=== PATIENT | female | born 1985 | race Asian ===

== ENCOUNTER 2019-08-08 23:45 | Inpatient (IN) | payer OTHER ==
[2019-08-09] MEDS ORDERED: Buffered Lidocaine 1% SYRIN* 1 ML/SYRINGE INTRADERM ONE (00:27)
[2019-08-09] MEDS ORDERED: Lactated Ringers 1000 ML Bag* 1,000 ML IV ONE ×2 (00:27→05:23)
--- NOTE | 2019-08-09 00:38 | HP ---
General Information - Reason for Visit labor/ rupture of membranes - General Information Maternal Age: 33 Grav: 22 Para: 0 SAB: 0 IEA: 1 Estimated Due Date: 08/18/19 Determined By: LMP Maternal Blood Type and Rh: O Positive - Results this Serology/RPR Result: Non-Reactive Rubella Result: Non-Immune HBsAg Result: Negative HIV Result: Negative GBS Culture Result: Negative Past Medical History Delivery History: See Records Pertinent Past Medical History: See Records Pertinent Past Surgical History: See Records Pertinent Family History: See Records - Antepartal Records Antepartal Records: Reviewed, Uncomplicated Review of Systems Constitutional: Comfortable CV Complaint: No Respiratory: Shortness of Breath: No Gastrointestinal: No Nausea/Vomiting Genitourinary: Leaking Fluid Musculoskeletal: No Complaint Neurological: No Headache Movement: Normal Exam T: 98.0 BP: 119/70 P : 101 - Measurements Height: 5 ft 2.2 in Weight: 156 lb Weight in lbs: 156.414169 Body Mass Index (BMI): 28.3 Pre- Weight: 123 lb 7.342 oz Weight Gained This : 32.541 lbs and 0.002 ozs - Exam Breast: Breast Exam Deferred CVA: No CVA Tenderness Extremities: No Edema Heart: Normal Rhythm/Heart Sounds HEENT: No Significant Findings Lungs: Clear Bilaterally Rectal: Rectal Exam Deferred Reflexes: DTR 2+ Thyroid: No Thyromegaly - Abdominal Exam Abdomen Exam: Non-Tender - Ultrasound/Biophysical Profile Ultrasound Status: Not Done Targeted Exam Findings Cervical Exam: 3cm Effacement: 80% Station: 0 Presenting Part: Vertex Membrane Status: Leaking Amniotic Fluid Evaluation: Gross Rupture EFM Findings - External Monitor Findings Baseline Heart Rate: 140 External Monitor Findings: Accelerations Present, No Pattern of Variable or Late Decelerations, Variability Moderate, Baseline Stable Contractions: Regular - Q - 6-7 ' Assessment/Plan - Assessment Pt 33 yo G1 at 38 2/7 weeks with rupture of membranes at 11:20 PM on 08/08/2019 - Plan Plan: Admit - Anticipate Vaginal Delivery
[2019-08-09] MEDS ORDERED: Lactated Ringers 1000 ML Bag* 1,000 ML IV SCH ×3 (01:00→09:00)
[2019-08-09 01:22] LABS: ABS Lymphocytes 1.4 10^3/ul (1.0-4.8); ABS Monocytes 0.6 10^3/ul (0-0.8); ABS Neutrophils 5.1 10^3/ul (1.5-7.7); Eosinophil % 0.7 %; Hematocrit 37 % (35-47); Hemoglobin 12.9 g/dL (12.0-16.0); Lymphocyte % 19.2 %; Mean Corpuscular HGB Conc 35 g/dL (31-36); Mean Corpuscular Hemoglobin 31 pg (27-31); Mean Corpuscular Volume 90 fL (80-97); Mean Platelet Volume 8.4 fL (7.4-10.4); Platelet Count 225 10^3/uL (150-450); Red Blood Count 4.16 10^6 /uL (3.70-4.87); Red Cell Distribution Width 13 % (10-15); White Blood Count 7.1 10^3/uL (3.5-10.8)
[2019-08-09 01:44] LABS: Urine Benzodiazepine Screen None Detected (None Detect); Urine Opiates Screen None Detected (None Detect)
[2019-08-09] MEDS ORDERED: OBEPIDURAL* 250 ML EPIDURAL ONE (04:13)
[2019-08-09] MEDS ORDERED: Famotidine TAB* 20 MG PO PRN (05:23)
[2019-08-09] MEDS ORDERED: Sodium Citrate/Citric Acid* 15 ML UDC PO PRN (05:23)
[2019-08-09] MEDS ORDERED: Phenylephrine 40 MCG/ML SYRINGE IV PUSH PRN ×2 (05:23)
[2019-08-09] MEDS ORDERED: EPHEDrine (Pressors)* 50 MG/ML VIAL IV PUSH PRN ×2 (05:23)
[2019-08-09] MEDS ORDERED: OBEPIDURAL* 250 ML EPIDURAL SCH (06:00)
[2019-08-09] MEDS ORDERED: Oxytocin in LR* 20 UNITS/1,000 ML BAG IVPB ONE (08:02)
[2019-08-09] MEDS ORDERED: Acetaminophen TAB* 325 MG PO PRN (08:13)
[2019-08-09] MEDS ORDERED: Measles, Mumps,Rubella VACC* 0.5 ML/VIAL SUBCUT ONE (08:13)
[2019-08-09] MEDS ORDERED: Glycerin ADULT SUPP PR PRN (08:13)
[2019-08-09] MEDS ORDERED: Oxytocin in LR* 20 UNITS/1,000 ML BAG IVPB SCH (09:00)
[2019-08-09] MEDS ORDERED: Lidocaine 1% INJ* 10 MG/ML 30 ML SDV ONE (11:37)
[2019-08-09] MEDS: Ibuprofen TAB* 600 MG PO SCH ×2 (12:31→18:44)
[2019-08-09] MEDS: Docusate CAP* 100 MG PO SCH ×3 (12:34→21:27)
[2019-08-09] MEDS: Witch Hazel PAD* JAR TOPICAL PRN (12:43)
[2019-08-09] MEDS: Simethicone TAB* 80 MG TAB.CHEW PO SCH ×2 (15:01→15:04)
--- NOTE | 2019-08-09 15:03 | PROCNOTE ---
[facility] OB: Delivery Note - Delivery A Date of : 08/09/19 Time of : 07:58 Sex: Male Weight at : 7 lb 5 oz Score 1 Minute: 9 Score 5 Minutes: 9 Gestational Age in Weeks and Days at Delivery: 38 Weeks and 5 Days Delivery Method: Spontaneous Vaginal Labor: Spontaneous Did Patient attempt ?: N/A, No Previous Amniotic Fluid: Clear Estimated Blood Loss: 200 Anesthesia/Analgesia: CEI for Labor Delivered By: Jean-Pierre Grant - Nursery Level of Nursery: Regular/Bedside - Perineum Perineal Injury: 2nd Degree - repair with 3-0 vicryl - Events Delivery Events of Note: Pitocin Only After Delivery - Risk for Falls Other Risk for Falls: none
--- NOTE | 2019-08-09 18:56 | PTEDU ---
Patient Name: SOMMER DUDLEY SOMMER DUDLEY selected video: BBOB: Bonding Through Massage to view on 08/09/2019 at 6:55:19 PM from [id number]
[2019-08-10 08:14] LABS: ABS Eosinophils 0.1 10^3/ul (0-0.6); ABS Lymphocytes 2.2 10^3/ul (1.0-4.8); ABS Monocytes 0.7 10^3/ul (0-0.8); Eosinophil % 0.9 %; Hematocrit 30 % (35-47); Hemoglobin 10.1 g/dL (12.0-16.0); Lymphocyte % 19.5 %; Mean Corpuscular HGB Conc 34 g/dL (31-36); Mean Corpuscular Hemoglobin 31 pg (27-31); Mean Corpuscular Volume 91 fL (80-97); Mean Platelet Volume 8.2 fL (7.4-10.4); Platelet Count 195 10^3/uL (150-450); Red Blood Count 3.26 10^6 /uL (3.70-4.87); Red Cell Distribution Width 13 % (10-15)
[2019-08-10] MEDS: Ibuprofen TAB* 600 MG PO SCH ×4 (08:27→20:42)
[2019-08-10] MEDS: Docusate CAP* 100 MG PO SCH ×3 (08:27→20:41)
[2019-08-10] MEDS ORDERED: Ferrous Gluconate TAB* 324 MG TAB PO SCH (09:00)
[2019-08-10] MEDS: Dibucaine 1% 28.35 GM TUBE PR PRN (20:41)
[2019-08-10] MEDS: Witch Hazel PAD* JAR TOPICAL PRN (20:41)
[2019-08-11] MEDS: Ibuprofen TAB* 600 MG PO SCH ×2 (03:45→09:40)
[2019-08-11 08:44] VITALS: BP 108/62
[2019-08-11] MEDS: Docusate CAP* 100 MG PO SCH (09:40)
[2019-08-11] MEDS: Dibucaine 1% 28.35 GM TUBE PR PRN (09:40)
[2019-08-11] MEDS: Witch Hazel PAD* JAR TOPICAL PRN (09:40)
== END 2019-08-11 10:45 | disposition home or self-care (01) | DRG 807 ==
LOC: MCHOBOUT 23:45 → MCHOB 08-09 00:28
PROVIDERS: ADMIT Obstetrics & Gynecology; ATTEND Obstetrics & Gynecology
PROC: 10E0XZZ Delivery of Products of Conception, External Approach (ICD-10-PCS; principal; 2019-08-09)
PROC: 0KQM0ZZ Repair Perineum Muscle, Open Approach (ICD-10-PCS; 2019-08-09)
PROC: 4A1HXCZ Monitoring of Products of Conception, Cardiac Rate, External Approach (ICD-10-PCS; 2019-08-09)
DX: O70.1 Second degree perineal laceration during delivery (principal); Z37.0 Single live birth; Z3A.38 38 weeks gestation of pregnancy; Z28.21 Immunization not carried out because of patient refusal
CPT/HCPCS: 36415; 80307; 85025; 86850; 86900; 86901; 90707; A9270-GY; G0480